=== PATIENT | male | born 1965 | race African-American/Black ===

== ENCOUNTER → 2018-03-05 | Outpatient (REF) | payer BC ==
[~2018-03-05] MED LIST: ACTOS30 MG PO; ACYCLOVIR400 MG PO; ALEVE220 MG OR; AMOXICILLIN500 MG; ATUSS DS OR; BACTRIM DS1 TAB PO; BACTROBAN21 EX; CEPH500C57 OR; CIPRO500 MG OR; CIPRO500 MG PO; COLCHICINE PO; DARVOCET-N 100100 MG OR; DOXYCYCL HYC100 MG PO; ENALAPR/HCTZ1 TA1 PO; FLAGYL500 MG PO; GLIPIZIDE ER10 M1 PO; GLIPIZIDE ER10 MG OR; INDOCIN25 MG PO; LIDOCAINE5 % EX; LOPRESSOR25 MG; LORTAB 10 PO; LORTAB 1010 MG PO; METFORMIN1000 MG OR; METFORMIN500 MG PO; MINERAL OIL RE; PROCTOSOL HC2.5 % RE; SIMVASTATIN10 MG PO; ULTRAM50 MG OR; ZANTAC150 MG OR; ZOFRAN ODT4 MG PO; ZPAK OR
== END | disposition home or self-care (01) | DRG 552 ==
LOC: DI 15:47
PROVIDERS: ATTEND Internal Medicine
DX: M54.5 Low back pain (principal)

== ENCOUNTER 2018-08-20 06:06 | Emergency (ER) | payer BC ==
[~2018-08-20] VITALS: Ht 185.4 cm; Wt 145.0 kg
[2018-08-20 07:04] VITALS: BP 145/84
== END 2018-08-20 07:06 | disposition home or self-care (01) | DRG 93 ==
LOC: ED 06:06
DX: G89.29 Other chronic pain (principal); M25.552 Pain in left hip; M25.551 Pain in right hip

== ENCOUNTER 2021-08-12 17:53 | Emergency (ER) | payer MEDICARE ==
[~2021-08-12] VITALS: Ht 185.4 cm; Wt 152.0 kg
[2021-08-12] VITALS (9 sets, daily range): BP systolic 118–154; BP diastolic 66–90
[2021-08-12] MEDS ORDERED: ORPHENADRINE100 MG PO (20:26)
[2021-08-12] MEDS ORDERED: TORADOL PO (20:26)
== END 2021-08-12 20:32 | disposition home or self-care (01) ==
LOC: ED 17:53
DX: M54.16 Radiculopathy, lumbar region (principal); E11.9 Type 2 diabetes mellitus without complications; I10 Essential (primary) hypertension; M06.9 Rheumatoid arthritis, unspecified; E78.00 Pure hypercholesterolemia, unspecified; Z96.643 Presence of artificial hip joint, bilateral; Z79.84 Long term (current) use of oral hypoglycemic drugs

== ENCOUNTER 2021-11-10 01:55 | Emergency (ER) | payer MEDICARE ==
[~2021-11-10] VITALS: Ht 185.4 cm; Wt 145.0 kg
[~2021-11-10 01:55] MED LIST changes: +ORPHENADRINE100 MG PO; +TORADOL PO
[2021-11-10 02:00] VITALS: BP 143/90
[2021-11-10 02:30] VITALS: BP 143/100
[2021-11-10] MEDS ORDERED: KEFLEX500 MG PO (03:17)
[2021-11-10] MEDS ORDERED: ROBITUSSIN AC10 ML PO (03:17)
[2021-11-10 03:20] VITALS: BP 149/98
== END 2021-11-10 03:26 | disposition home or self-care (01) ==
LOC: ED 01:55
DX: J06.9 Acute upper respiratory infection, unspecified (principal); I10 Essential (primary) hypertension; E11.9 Type 2 diabetes mellitus without complications; M06.9 Rheumatoid arthritis, unspecified; E78.00 Pure hypercholesterolemia, unspecified; Z79.84 Long term (current) use of oral hypoglycemic drugs; Z20.822 Contact with and (suspected) exposure to COVID-19

== ENCOUNTER 2021-11-21 14:58 | Inpatient (IN) | payer MEDICARE ==
[~2021-11-21] VITALS: Ht 185.4 cm; Wt 144.0 kg
[~2021-11-21 14:58] MED LIST changes: +KEFLEX500 MG PO; +ROBITUSSIN AC10 ML PO
[2021-11-21 15:18] VITALS: BP 132/85
--- NOTE | 2021-11-21 15:22 | NUR ---
PT AMBULATES TO ROOM 4 VIA WHEELCHAIR FOR EVAL OF SOB
[2021-11-21 16:09] LABS: HEMOGLOBIN 13.5 g/dl (14.0-18.0); IMMATURE GRANULOCYTES 0.2 % (0.0-5.0); MEAN CELL VOLUME 84.6 fL CALC (80.0-100.0); MEAN CORPUSCULAR HGB CONC 30.7 g/dL CAL (32.0-36.0); NEUT# 5.35 thou/uL (1.82-7.42); RED BLOOD COUNT 5.2 mill/uL (4.70-6.10); RED CELL DISTRI WIDTH 15.5 % (11.5-15.5)
[2021-11-21 16:41] LABS: ALBUMIN 4.6 g/dL (3.2-5.0); BILIRUBIN, TOTAL 0.5 mg/dL (0.0-1.4); CREATININE 1.9 mg/dL (0.7-1.3); POTASSIUM 4.2 mmol/l (3.5-5.1); TOTAL PROTEIN 8.8 g/dL (6.3-8.2)
[2021-11-21 17:50] VITALS: BP 112/79
--- NOTE | 2021-11-21 18:10 | NUR ---
3.5 LACTIC CRITICAL RESULT REPORTED TO
--- NOTE | 2021-11-21 19:12 | NUR ---
VOIDED 800 CC IN URINAL
--- NOTE | 2021-11-21 19:20 | NUR ---
PT GIVEN DIET SODA AND XL GOWN.
--- NOTE | 2021-11-21 21:38 | NUR ---
Report called to floor nurser
--- NOTE | 2021-11-21 21:39 | NUR ---
Report called to floor
--- NOTE | 2021-11-21 21:45 | NUR ---
PATIENT ARRIVED ON FLOOR VIA WHEELCHAIR ACCOMPANIED BY Helga ADAM RN.
[2021-11-21 21:48] VITALS: BP 139/95
[2021-11-22] VITALS (7 sets, daily range): BP systolic 111–151; BP diastolic 68–99
--- NOTE | 2021-11-22 00:15 | NUR ---
PATIENT RESTING COMFORTABLY, DENIES ANY CURRENT NEEDS. CALL LIGHT AND BEDSIDE TABLE WITHIN REACH.
[2021-11-22 06:27] LABS: HEMATOCRIT 40.4 % (39.0-50.0); HEMOGLOBIN 12.5 g/dl (14.0-18.0); MEAN CELL VOLUME 85.1 fL CALC (80.0-100.0); MEAN CORPUSCULAR HGB 26.3 pG CALC (26.0-32.0); MEAN CORPUSCULAR HGB CONC 30.9 g/dL CAL (32.0-36.0); RED BLOOD COUNT 4.75 mill/uL (4.70-6.10); RED CELL DISTRI WIDTH 15.5 % (11.5-15.5)
--- NOTE | 2021-11-22 06:31 | NUR ---
\HEPARIN ADMINSTERED AT THIS TIME. PATIENT DENIES ANY FURTHER NEEDS AT THIS TIME. CALL LIGHT WITHIN REACH.
[2021-11-22 07:19] LABS: CREATININE 1.7 mg/dL (0.7-1.3); MAGNESIUM 1.7 mg/dL (1.6-2.3); POTASSIUM 4.8 mmol/l (3.5-5.1)
--- NOTE | 2021-11-22 08:00 | NUR ---
PATIENT IS A/OX3, ABLE TO MAKE NEEDS KNOWN TO STAFF. DENIES PAIN AT THIS TIME. CLEAR SPEECH. DIMINSIHED LUNG SOUNDS. ACTIVE BOWEL SOUNDS. SOFT NON TENDER ABDOMEN. STRONG HAND DIRECTOR TREASURER, NO ARM OR LEG DRIFTS. STRONG PUSLES. SAFETY MEASURES IN PLACE. CALL LIGHT IN REACH. STABLE VITAL SIGNS. WILL COTNINUE TO MONITOR PER [facility]S POLICY.
--- NOTE | 2021-11-22 12:00 | NUR ---
DECREASED O2 TO 1L NC. STATED HE IS "DOING WELL" O2 SATS 94/95% WIH 1L NC
--- NOTE | 2021-11-22 16:00 | NUR ---
PATIENT REMAINS ON 1L NC, STATED HE WENT TO SHOWER ON ROOM AIR STATED HE DID WELL NO SOB OR DIZZINESS.
--- NOTE | 2021-11-22 22:52 | NUR ---
Patient is resting in bed, awake, no pain or needs reported at this time, encouraged to call if needed, voices understanding, call pagan at reach.
[2021-11-23] VITALS (11 sets, daily range): BP systolic 106–156; BP diastolic 54–108
--- NOTE | 2021-11-23 00:06 | NUR ---
Patient is resting in bed with eyes closed, no pain or needs reported at this time, encouraged to call if needed, voices understanding, call pagan at reach.
--- NOTE | 2021-11-23 04:24 | NUR ---
Patient is resting in bed with eyes closed, arouses easily to any stimuli, no pain or needs reported, will follow up closely, call pagan at reach, safety measures reinforced.
[2021-11-23 05:06] LABS: HEMATOCRIT 37.1 % (39.0-50.0); HEMOGLOBIN 11.5 g/dl (14.0-18.0); MEAN CELL VOLUME 84.3 fL CALC (80.0-100.0); MEAN CORPUSCULAR HGB 26.1 pG CALC (26.0-32.0); RED BLOOD COUNT 4.4 mill/uL (4.70-6.10); RED CELL DISTRI WIDTH 15.7 % (11.5-15.5)
[2021-11-23 05:26] LABS: ANION GAP 16 (6-22 (CALC)); BUN 21 mg/dL (9-20); BUN/CREATININE RATIO 16 (12-20 (CALC)); CARBON DIOXIDE 23 mmol/l (22-30); CHLORIDE 105 mmol/l (95-108); CREATININE 1.4 mg/dL (0.7-1.3); GFR FOR AFR.AMER. > 60 ML/MIN (>=60 (CALC)); GFR OTHER RACES 52 ML/MIN (>=60 (CALC)); POTASSIUM 4.6 mmol/l (3.5-5.1); SODIUM 139 mmol/l (137-146)
--- NOTE | 2021-11-23 06:11 | NUR ---
Patient denies any pain or needs, awake, watching tv, medicated with am medication per [facility] orders.
--- NOTE | 2021-11-23 20:00 | NUR ---
PT ALERT AND ORIENTED. SITTING UP AT SIDE OF THE BED. PT DENIES PAIN AND SHORTNESS OF BREATH. REMAINS ON 1L NC. VITAL SIGNS ARE WITHIN NORMAL LIMITS. PT HAS CALL LIGHT AND PERSONAL BELONGINGS WITHIN HIS REACH. WILL CONTINUE TO MONITOR.
[2021-11-24] VITALS (10 sets, daily range): BP systolic 120–162; BP diastolic 59–109
--- NOTE | 2021-11-24 | NUR ---
SHIFT REASSESSMENT - NO CHANGE IN PTS STATUS SINCE PREVIOUS ASSESSMENT. PT RESTING COMFORTABLE IN BED. HAS BEEN UP TO USE THE RESTROOM A FEW TIMES. VITAL SIGNS WITHIN NORMAL LIMITS. CALL LIGHT AND PERSONAL BELONGINGS WITHIN REACH. WILL CONTINUE TO MONITOR.
--- NOTE | 2021-11-24 04:00 | NUR ---
SHIFT REASSESSMENT - NO CHANGE IN PTS STATUS SINCE PREVIOUS ASSESSMENT. CALL LIGHT AND PERSONAL BELONGINGS WITHIN REACH. WILL CONTINUE TO MONITOR CLOSELY..
[2021-11-24 05:02] LABS: HEMATOCRIT 37.4 % (39.0-50.0); HEMOGLOBIN 11.5 g/dl (14.0-18.0); MEAN CELL VOLUME 84.6 fL CALC (80.0-100.0); MEAN CORPUSCULAR HGB CONC 30.7 g/dL CAL (32.0-36.0); RED BLOOD COUNT 4.42 mill/uL (4.70-6.10); RED CELL DISTRI WIDTH 15.7 % (11.5-15.5)
[2021-11-24 05:18] LABS: ANION GAP 14 (6-22 (CALC)); BUN 23 mg/dL (9-20); BUN/CREATININE RATIO 17 (12-20 (CALC)); CARBON DIOXIDE 24 mmol/l (22-30); CHLORIDE 105 mmol/l (95-108); CREATININE 1.4 mg/dL (0.7-1.3); GFR FOR AFR.AMER. > 60 ML/MIN (>=60 (CALC)); GFR OTHER RACES 52 ML/MIN (>=60 (CALC)); MAGNESIUM 2.1 mg/dL (1.6-2.3); POTASSIUM 4.5 mmol/l (3.5-5.1); SODIUM 138 mmol/l (137-146)
--- NOTE | 2021-11-24 08:00 | NUR ---
RESTING QUIETLY IN BED, NO SIGNS OR SYMPTOMS OF DISTRESS NOTED OR VOICED. COVERAGE GIVEN FOR BS OF 219, BREAKFAST EATEN.
--- NOTE | 2021-11-24 12:00 | NUR ---
RESTING QUIETLY IN BED, FAILED ANOTHER 6 MINUTE WALK TEST, CONTINUES ON 1 LITER OF OXYGEN, NO OTHER SIGNS OR SYMPTOMS OF DISTRESS NOTED OR VOICED.
--- NOTE | 2021-11-24 16:00 | NUR ---
RESTING QUIETLY IN BED, NO SIGNS OR SYMPTOMS OF DISTRESS NOTED OR VOICED. BP ELEVATED PER FEDERAL APPELLATE LAW CLERK, NURSE RECHECKED AND CURRENTLY 162/92. PHYSICIAN NOTIFIED OF ELEVATED BP AND CURRENTLY NOT ON HIS HOME MEDICATIONS.
[2021-11-25] VITALS (9 sets, daily range): BP systolic 114–146; BP diastolic 70–93
[2021-11-25 05:25] LABS: HEMOGLOBIN 11.3 g/dl (14.0-18.0); MEAN CELL VOLUME 84.5 fL CALC (80.0-100.0); MEAN CORPUSCULAR HGB 26.5 pG CALC (26.0-32.0); MEAN CORPUSCULAR HGB CONC 31.4 g/dL CAL (32.0-36.0); RED BLOOD COUNT 4.26 mill/uL (4.70-6.10); RED CELL DISTRI WIDTH 15.6 % (11.5-15.5)
[2021-11-25 05:28] LABS: ANION GAP 12 (6-22 (CALC)); BUN 21 mg/dL (9-20); BUN/CREATININE RATIO 18 (12-20 (CALC)); CARBON DIOXIDE 23 mmol/l (22-30); CHLORIDE 105 mmol/l (95-108); CREATININE 1.1 mg/dL (0.7-1.3); GFR FOR AFR.AMER. > 60 ML/MIN (>=60 (CALC)); GFR OTHER RACES > 60 ML/MIN (>=60 (CALC)); MAGNESIUM 2.1 mg/dL (1.6-2.3); POTASSIUM 4.4 mmol/l (3.5-5.1); SODIUM 137 mmol/l (137-146)
--- NOTE | 2021-11-25 07:00 | NUR ---
RECEIVE REPORT FROM ROSENDO FOFANA.
--- NOTE | 2021-11-25 08:12 | NUR ---
PATIENT ALERT AND ORIENTED X3. NOT RESPIRATORY DISTRESS AT THIS TIME. PATIENT RESTING PLEASANT. PATIENT IS EDUCATED ABOUD MEDICATIONS AND NURSING PLAN FOR TODAY. WALK TEST AND OXYGEN MANAGEMENT. PATIENT REFER UNDERSTAND. FALL AND SAFETY PRECAUTIONS IN PLACE. CALL LIGHT IS WITHIN REACH.
--- NOTE | 2021-11-25 10:49 | NUR ---
Pt seen this am for treatment, he was in boykin position, moved to sitting indep. Pt was on 3L 02 with Sats of 95%, on RA 93% Ambulated x 100' without 02 with sats decreasing to 84%. Pt ambulated 2 x 300' with 2l 02 with sats down to 89 and back to 95% within 3 min of rest. BP 142/88 to 152/92, HR 84 to 89. Pt left sitting on edge of bed on 2L 02 per nursing. Call pagan/tray in reach and pt without futher needs voiced. A- [facility] 20 pt mobility limited by resp status. P- will follow help increase resp status and mobility
--- NOTE | 2021-11-25 12:18 | NUR ---
PATIENT RESTING IN BED PLEASENT AT THIS TIME. STABLE
--- NOTE | 2021-11-25 16:26 | NUR ---
PATIENT STABLE A THIS TIME RESTING PLEASENT IN BED. FALL AND SAFETY PRECAUTIONS IN PLACE. CALL LIGHT IS WITHIN REACH.
--- NOTE | 2021-11-25 20:00 | NUR ---
RECEIVED REPORT FROM NURSE LAGUNAS, PATEINT RESTING IN BED WATCHING TV, HOOKED ON O2 @ 1LPM VIA NC, REMAINS ON TELEMETRY SR 86 ACCIDENTALY PULLED IV CATHETER INTACT, LUNG SOUNDS DIMINISHED, ACTIVE BOWEL SOUNDS, NOT IN DISTRESS CALL LIGHT IN REACH.
--- NOTE | 2021-11-25 20:40 | NUR ---
NEW IV REINSERTED G 22 ON RT HAND, PATENT FLUSHES WELL, DUE AZITHROMYCIN GIVEN.
[2021-11-26] VITALS (7 sets, daily range): BP systolic 109–130; BP diastolic 71–90
--- NOTE | 2021-11-26 | NUR ---
PATIENT ON CONTACT ISOLATION FOR HX OF MRSA, MRSA SURVEILLANCE SWAB OBTAIN PENDING RESULTS,
--- NOTE | 2021-11-26 04:09 | NUR ---
PATIENT RESTING IN BED,E EYES CLOSED, REMAINS ON CONTACT PRECAUTION FOR HX OF MRSA, REMAINS ON O2 2 2LPM VIA NC BREATHING UNLABORED CALL LIGHT AT REACH.
[2021-11-26 05:32] LABS: IMMATURE GRANULOCYTES 0.9 % (0.0-5.0); MEAN CELL VOLUME 84.3 fL CALC (80.0-100.0); MEAN CORPUSCULAR HGB 25.7 pG CALC (26.0-32.0); MEAN CORPUSCULAR HGB CONC 30.5 g/dL CAL (32.0-36.0); NEUT# 7.39 thou/uL (1.82-7.42); RED BLOOD COUNT 5.22 mill/uL (4.70-6.10); RED CELL DISTRI WIDTH 15.6 % (11.5-15.5)
--- NOTE | 2021-11-26 05:44 | NUR ---
spo2 ON 2LPM AT 99%, BREATHING UNLABORED, O2 TITRATED TO 1LPM AT THIS TIME.
[2021-11-26 05:49] LABS: HEMOGLOBIN 13.4 g/dl (14.0-18.0)
[2021-11-26 05:58] LABS: CREATININE 1.5 mg/dL (0.7-1.3); MAGNESIUM 2.3 mg/dL (1.6-2.3); POTASSIUM 4.6 mmol/l (3.5-5.1)
--- NOTE | 2021-11-26 06:17 | NUR ---
O2 @ 1LPM NC SPO2 AT 98% BREATHING UNLABORED.
--- NOTE | 2021-11-26 06:58 | NUR ---
PT REPORT FROM HOSPICE MUSIC THERAPIST
--- NOTE | 2021-11-26 08:00 | NUR ---
PT RESTING IN FOWLERS POSITION. A/OX3 PT ASSESSMENT AND VS COMPLETED.HEART RHYTHM NORMAL WITH TELE IN PLACE. RESPIRAITONS EVEN AND UNLABORED ON 1L OXYGEN. BOWEL SOUNDS ACTIVE. IV SITE NOTED S.L PT DENIES ADDITIONAL NEEDS AT THE TIME ALL SAFETY PRECAUTIONS IN PLACE.
--- NOTE | 2021-11-26 10:06 | NUR ---
Pt seen this am for treatment, he was in bed resting on R side. He reported sleeping well last pm. O- Pt moved supine to sit, sit to and from stand indep. Pt on 1L 02 with sats at 95%, 02 removed atnd 95% on RA. Gait x 250' without assist device or 02, sats 90 and above on 1st walk, on second walk decreased to 88 with recovery with rest and DB back to 92%, Pt on initial sitting down to 87-88% with recovery in less than 5 min to 94-95%. HR at rest 101 increase to 120's while ambulating. BP 140/92 to 152/95. Pt denied SOB during treatment. Per RT pt left on RA, METAL DRILLING MACHINE OPERATOR aware. Pt left sitting on edge of bed with call pagan and tray in reach. A- Pt moving well with improve 02 sats with activity. [facility] 20 home with OP cardiac rehab. P- Will continue to follow and monitior CV status.
--- NOTE | 2021-11-26 12:30 | NUR ---
PT RESTING IN HIGH FOWELERS PT DENIES ADDITIONAL NEEDS PT ON ROOM AIR . ALL SAFETY PRECAUTIONS IN PLACE.
--- NOTE | 2021-11-26 16:01 | NUR ---
PT RESTING IN HIGH FOWLERS POSITION. PT DENIES ADDITIONAL NEEDS AT THE TIME ALL SAFETY PRECAUTIONS IN PLACE.
--- NOTE | 2021-11-26 20:00 | NUR ---
SITTING UP AT BEDSIDE TALKING ON HIS CELL PHONE. RESPIRATIONS EVEN AND UNLABORED NO SOB NOTED LUNG SOUNDS DIMISHED BILATERALLY. ACCUCHEK 325 MG/DL
--- NOTE | 2021-11-27 | NUR ---
RESTING QUIETLY IN BED WITH EYES CLOSED. NO ACUTE DISTRESS NOTED RESPIRATIONS EVEN AND UNLABORED.
[2021-11-27 00:23] VITALS: BP 105/56
--- NOTE | 2021-11-27 03:29 | NUR ---
LYING IN BED RELAXED POSTURE NO ACUTE DISTRESS NOTED. RESPIRATIONS EVEN AND UNLABORED.
[2021-11-27 04:11] VITALS: BP 148/95
--- NOTE | 2021-11-27 04:15 | NUR ---
LABS OBTAINED VIA DUEL-LUMEN POWER-PICC LINE. PATIENT PAIN FREE AT THIS TIME USED THE URINAL WHILE IN BED. NO COMPLAINTS VOICED AT THIS TIME.
[2021-11-27 05:36] LABS: HEMATOCRIT 42.9 % (39.0-50.0); HEMOGLOBIN 13.5 g/dl (14.0-18.0); IMMATURE GRANULOCYTES 0.5 % (0.0-5.0); MEAN CELL VOLUME 83.3 fL CALC (80.0-100.0); MEAN CORPUSCULAR HGB 26.2 pG CALC (26.0-32.0); MEAN CORPUSCULAR HGB CONC 31.5 g/dL CAL (32.0-36.0); NEUT# 6.18 thou/uL (1.82-7.42); RED BLOOD COUNT 5.15 mill/uL (4.70-6.10); RED CELL DISTRI WIDTH 15.5 % (11.5-15.5)
[2021-11-27 06:06] LABS: ALBUMIN 3.8 g/dL (3.2-5.0); ALKALINE PHOSPHATASE 141 u/l (38-126); ANION GAP 13 (6-22 (CALC)); BILIRUBIN, TOTAL 0.5 mg/dL (0.0-1.4); BUN 25 mg/dL (9-20); BUN/CREATININE RATIO 20 (12-20 (CALC)); CARBON DIOXIDE 25 mmol/l (22-30); CHLORIDE 102 mmol/l (95-108); CREATININE 1.2 mg/dL (0.7-1.3); GFR FOR AFR.AMER. > 60 ML/MIN (>=60 (CALC)); GFR OTHER RACES > 60 ML/MIN (>=60 (CALC)); POTASSIUM 4.3 mmol/l (3.5-5.1); SGOT/AST 22 u/l (17-59); SODIUM 136 mmol/l (137-146)
[2021-11-27 06:48] VITALS: BP 128/72
[2021-11-27 08:00] VITALS: BP 128/72
--- NOTE | 2021-11-27 08:00 | NUR ---
AWAKE, ALERT, NO SIGNS OR SYMPTOMS OF DISTRESS NOTED OR VOICED.
[2021-11-27 08:39] VITALS: BP 128/72
--- NOTE | 2021-11-27 10:42 | NUR ---
Pt seen for treatment this am. He was OOb in chair, for d/c today. He was without complaints voiced. Gait was indep x 300' 2 times with 02 sats staying above 90%. Sit to stand and transfers were indep. P02 sats at rest on RA 95%, desat to 90/92% with gait, with recovery back to 95% at rest, HR 102 to 122. A- Pt indep in mobility with 02 sats staying above 90. [facility] 20 home. P- pt for d/c today.
--- NOTE | 2021-11-27 12:00 | NUR ---
RESTING QUIETLY IN BED, NO CHANGES IN CONDITION
[2021-11-27] MEDS ORDERED: LASIX 20 MG TAB20 MG PO (13:16)
--- NOTE | 2021-11-27 13:55 | NUR ---
PATIENT DISCHARGED HOME IN STABLE CONDISTION, NEW MEDICATIONS AND INSTRUCTIONS GONE OVER AND UNDERSTANDING VERBALIZED, IV REMOVED.
== END 2021-11-27 14:32 | disposition home or self-care (01) | DRG 291 ==
LOC: ED 14:58 → ED-I 19:58 → ED 20:10 → MS2 20:11
PROVIDERS: Family Medicine; Nurse Practitioner; ADMIT Hospitalist; ATTEND Hospitalist
DX: I11.0 Hypertensive heart disease with heart failure (principal); I50.31 Acute diastolic (congestive) heart failure; Z68.41 Body mass index [BMI] 40.0-44.9, adult; R09.02 Hypoxemia; E11.9 Type 2 diabetes mellitus without complications; M06.9 Rheumatoid arthritis, unspecified; E66.9 Obesity, unspecified; E78.00 Pure hypercholesterolemia, unspecified; Z79.84 Long term (current) use of oral hypoglycemic drugs; Z91.013 Allergy to seafood; Z20.822 Contact with and (suspected) exposure to COVID-19
CPT/HCPCS: Q9967

== ENCOUNTER 2021-12-23 12:28 | Observation (INO) | payer MEDICARE ==
[2021-12-23] VITALS (14 sets, daily range): BP systolic 82–131; BP diastolic 59–86
[~2021-12-23] VITALS: Ht 185.4 cm; Wt 158.9 kg
[~2021-12-23 12:28] MED LIST changes: +LASIX 20 MG TAB20 MG PO; -LOPRESSOR25 MG; +LOPRESSOR25 MG PO; +METFORMIN500 M2 PO; -METFORMIN500 MG PO
[2021-12-23 14:15] LABS: ALBUMIN 4.3 g/dL (3.2-5.0); CREATININE 1.7 mg/dL (0.7-1.3); TOTAL PROTEIN 8.4 g/dL (6.3-8.2)
[2021-12-23 14:37] LABS: HEMATOCRIT 42.9 % (39.0-50.0); HEMOGLOBIN 13.4 g/dl (14.0-18.0); IMMATURE GRANULOCYTES 0.1 % (0.0-5.0); MEAN CORPUSCULAR HGB 25.9 pG CALC (26.0-32.0); MEAN CORPUSCULAR HGB CONC 31.2 g/dL CAL (32.0-36.0); NEUT# 4.79 thou/uL (1.82-7.42); RED BLOOD COUNT 5.17 mill/uL (4.70-6.10); RED CELL DISTRI WIDTH 15.3 % (11.5-15.5)
[2021-12-23 14:45] LABS: POTASSIUM 4.3 mmol/l (3.5-5.1)
[2021-12-23 14:47] LABS: BILIRUBIN, TOTAL 0.6 mg/dL (0.0-1.4)
[2021-12-23] MEDS ORDERED: LISINOPRIL2.5 MG PO (15:11)
[2021-12-23] MEDS ORDERED: CRESTOR5 MG PO (15:14)
[2021-12-23] MEDS ORDERED: ALLOPURINOL100 MG PO (15:14)
[2021-12-23] MEDS ORDERED: NOVOLOG MIX SC ×2 (15:15)
[2021-12-24 00:24] VITALS: BP 109/64
[2021-12-24 04:07] LABS: CREATININE 1.7 mg/dL (0.7-1.3)
[2021-12-24 04:09] LABS: POTASSIUM 3.7 mmol/l (3.5-5.1)
[2021-12-24 04:10] VITALS: BP 99/54
[2021-12-24 06:31] VITALS: BP 106/68
[2021-12-24 14:40] VITALS: BP 112/75
[2021-12-24 14:58] LABS: URINE BILIRUBIN - DIPSTICK NEGATIVE (NEGATIVE); URINE BLOOD DIPSTICK TRACE-INTACT (NEGATIVE); URINE COLOR YELLOW; URINE GLUCOSE - DIPSTICK 100 mg/dL (NEGATIVE); URINE KETONE NEGATIVE (NEGATIVE); URINE LEUK ESTERASE NEGATIVE (Negative); URINE NITRITE - DIPSTICK NEGATIVE (Negative); URINE PH 6.5 (4.5-8.0); URINE PROTEIN - DIPSTICK 30 mg/dL (NEG-TRACE); URINE SPECIFIC GRAVITY 1.015
[2021-12-24 15:00] LABS: URINE CLARITY SL CLOUDY
[2021-12-24 15:01] LABS: URINE EPITHELIAL CELLS MODERATE EPI/hpf (0-FEW); URINE MUCUS FEW hpf (NONE-FEW); URINE RBC 0-2 RBC/hpf (0-5)
[2021-12-24] MEDS ORDERED: ENALAPRIL10 MG PO (15:44)
[2021-12-24] MEDS ORDERED: PIOGLITAZONE HC30 MG PO (15:45)
[2021-12-24 18:57] VITALS: BP 113/72
[2021-12-25 03:44] VITALS: BP 122/71
[2021-12-25 05:26] LABS: HEMATOCRIT 39.1 % (39.0-50.0); HEMOGLOBIN 12.1 g/dl (14.0-18.0); IMMATURE GRANULOCYTES 0.2 % (0.0-5.0); MEAN CELL VOLUME 84.6 fL CALC (80.0-100.0); MEAN CORPUSCULAR HGB 26.2 pG CALC (26.0-32.0); MEAN CORPUSCULAR HGB CONC 30.9 g/dL CAL (32.0-36.0); NEUT# 3.1 thou/uL (1.82-7.42); RED BLOOD COUNT 4.62 mill/uL (4.70-6.10); RED CELL DISTRI WIDTH 15.4 % (11.5-15.5)
[2021-12-25 05:39] LABS: CREATININE 1.5 mg/dL (0.7-1.3); MAGNESIUM 1.8 mg/dL (1.6-2.3); POTASSIUM 4.1 mmol/l (3.5-5.1)
[2021-12-25 06:49] VITALS: BP 109/69
[2021-12-25 09:27] VITALS: BP 105/67
[2021-12-25 10:28] VITALS: BP 128/68
[2021-12-25 15:11] VITALS: BP 123/79
== END 2021-12-25 15:45 | disposition home or self-care (01) ==
LOC: ED 12:28 → ED-I 15:10 → ED 15:17 → MS2 15:18
PROVIDERS: Family Medicine; Nurse Practitioner; ADMIT Internal Medicine; ATTEND Internal Medicine
DX: R55 Syncope and collapse (principal); N17.9 Acute kidney failure, unspecified; E86.0 Dehydration; I11.0 Hypertensive heart disease with heart failure; I50.9 Heart failure, unspecified; I95.9 Hypotension, unspecified; R09.02 Hypoxemia; E11.9 Type 2 diabetes mellitus without complications; M06.9 Rheumatoid arthritis, unspecified; E78.00 Pure hypercholesterolemia, unspecified; Z79.84 Long term (current) use of oral hypoglycemic drugs; Z79.4 Long term (current) use of insulin; Z20.822 Contact with and (suspected) exposure to COVID-19
CPT/HCPCS: J1650

== ENCOUNTER 2022-02-28 12:39 | Emergency (ER) | payer MEDICARE ==
[2022-02-28] VITALS (11 sets, daily range): BP systolic 113–142; BP diastolic 74–90
[~2022-02-28] VITALS: Ht 185.4 cm; Wt 140.9 kg
[~2022-02-28 12:39] MED LIST changes: +ALLOPURINOL100 MG PO; +CRESTOR5 MG PO; +ENALAPRIL10 MG PO; +LISINOPRIL2.5 MG PO; +NOVOLOG MIX SC; +PIOGLITAZONE HC30 MG PO
[2022-02-28 13:47] LABS: ALBUMIN 4.2 g/dL (3.2-5.0); ALKALINE PHOSPHATASE 118 u/l (38-126); ANION GAP 17 (6-22 (CALC)); BUN 15 mg/dL (9-20); BUN/CREATININE RATIO 11 (12-20 (CALC)); CARBON DIOXIDE 21 mmol/l (22-30); CHLORIDE 104 mmol/l (95-108); CREATININE 1.3 mg/dL (0.7-1.3); GFR FOR AFR.AMER. > 60 ML/MIN (>=60 (CALC)); GFR OTHER RACES 57 ML/MIN (>=60 (CALC)); POTASSIUM 3.8 mmol/l (3.5-5.1); SGOT/AST 32 u/l (17-59); SODIUM 138 mmol/l (137-146); TOTAL PROTEIN 8.1 g/dL (6.3-8.2)
[2022-02-28 13:48] LABS: HEMATOCRIT 40.2 % (39.0-50.0); HEMOGLOBIN 12.7 g/dl (14.0-18.0); IMMATURE GRANULOCYTES 0.1 % (0.0-5.0); MEAN CORPUSCULAR HGB 24.9 pG CALC (26.0-32.0); MEAN CORPUSCULAR HGB CONC 31.6 g/dL CAL (32.0-36.0); NEUT# 4.64 thou/uL (1.82-7.42); RED BLOOD COUNT 5.1 mill/uL (4.70-6.10); RED CELL DISTRI WIDTH 16.6 % (11.5-15.5)
[2022-02-28 13:49] LABS: MEAN CELL VOLUME 78.8 fL CALC (80.0-100.0)
[2022-02-28] MEDS ORDERED: [UNRECOGNIZED DRUG - OTHER] PO (14:54)
[2022-02-28] MEDS ORDERED: DULOXETINE HCL60 MG PO (14:55)
[2022-02-28] MEDS ORDERED: CRESTOR40 MG PO (14:55)
[2022-02-28] MEDS ORDERED: ENTRESTO 24-261 TAB PO (14:56)
[2022-02-28] MEDS ORDERED: PROTONIX40 M2 PO (14:57)
[2022-02-28] MEDS ORDERED: B-121000 MC1 PO (15:01)
[2022-02-28] MEDS ORDERED: FUROSEMIDE20 MG PO (15:03)
[2022-02-28] MEDS ORDERED: ALLOPURINOL100 MG PO (15:03)
== END 2022-02-28 15:30 | disposition home or self-care (01) ==
LOC: ED 12:39
PROVIDERS: Family Medicine
DX: R06.02 Shortness of breath (principal); I11.0 Hypertensive heart disease with heart failure; I50.9 Heart failure, unspecified; I42.9 Cardiomyopathy, unspecified; I27.20 Pulmonary hypertension, unspecified; E11.9 Type 2 diabetes mellitus without complications; I25.10 Atherosclerotic heart disease of native coronary artery without angina pectoris; E66.01 Morbid (severe) obesity due to excess calories; Z79.84 Long term (current) use of oral hypoglycemic drugs; Z79.4 Long term (current) use of insulin; Z99.81 Dependence on supplemental oxygen; Z59.1 Inadequate housing

== ENCOUNTER 2022-06-03 22:43 | Emergency (ER) | payer MEDICARE ==
[~2022-06-03] VITALS: Ht 185.4 cm; Wt 127.0 kg
[~2022-06-03 22:43] MED LIST changes: +B-121000 MC1 PO; +CRESTOR40 MG PO; +DULOXETINE HCL60 MG PO; +ENTRESTO 24-261 TAB PO; +FUROSEMIDE20 MG PO; +PROTONIX40 M2 PO; +[UNRECOGNIZED DRUG - OTHER] PO
[2022-06-03 23:15] VITALS: BP 111/68
[2022-06-03 23:21] LABS: BASO% 0.6 % (0-3); EOS% 1.9 % (0-8); HEMATOCRIT 34.7 % (39.0-50.0); IMMATURE GRANULOCYTES 0.1 % (0.0-5.0); MEAN CELL VOLUME 75.9 fL CALC (80.0-100.0); MEAN CORPUSCULAR HGB 24.1 pG CALC (26.0-32.0); MEAN CORPUSCULAR HGB CONC 31.7 g/dL CAL (32.0-36.0); MONO% 6.3 % (2-13); NEUT# 4.46 thou/uL (1.82-7.42); NEUT% 65.1 % (42-76); RED BLOOD COUNT 4.57 mill/uL (4.70-6.10); RED CELL DISTRI WIDTH 18.5 % (11.5-15.5)
[2022-06-03 23:30] LABS: ALBUMIN 3.9 g/dL (3.2-5.0); ALKALINE PHOSPHATASE 133 u/l (38-126); ANION GAP 14 (6-22 (CALC)); BILIRUBIN, TOTAL 0.8 mg/dL (0.0-1.4); BUN 24 mg/dL (9-20); BUN/CREATININE RATIO 20 (12-20 (CALC)); CARBON DIOXIDE 25 mmol/l (22-30); CHLORIDE 105 mmol/l (95-108); CREATININE 1.2 mg/dL (0.7-1.3); GFR FOR AFR.AMER. > 60 ML/MIN (>=60 (CALC)); GFR OTHER RACES > 60 ML/MIN (>=60 (CALC)); POTASSIUM 3.9 mmol/l (3.5-5.1); SGOT/AST 34 u/l (17-59); SODIUM 140 mmol/l (137-146); TOTAL PROTEIN 7.4 g/dL (6.3-8.2)
[2022-06-03 23:45] VITALS: BP 104/74
[2022-06-04] VITALS (7 sets, daily range): BP systolic 98–121; BP diastolic 49–89
== END 2022-06-04 01:45 | disposition home or self-care (01) ==
LOC: ED 22:43
PROVIDERS: Family Medicine
DX: J96.10 Chronic respiratory failure, unspecified whether with hypoxia or hypercapnia (principal); I10 Essential (primary) hypertension; E11.9 Type 2 diabetes mellitus without complications; Z99.81 Dependence on supplemental oxygen; Z79.4 Long term (current) use of insulin; Z20.822 Contact with and (suspected) exposure to COVID-19

== ENCOUNTER 2022-06-21 20:16 | Inpatient (IN) | payer MEDICARE ==
[~2022-06-21] VITALS: Ht 185.4 cm; Wt 132.2 kg
[2022-06-21] VITALS (14 sets, daily range): BP systolic 52–116; BP diastolic 28–78
[2022-06-21 21:15] LABS: BASO% 0.4 % (0-3); EOS% 1.8 % (0-8); HEMATOCRIT 38.5 % (39.0-50.0); HEMOGLOBIN 11.6 g/dl (14.0-18.0); IMMATURE GRANULOCYTES 0.2 % (0.0-5.0); LYMPH% 25.4 % (15-41); MEAN CELL VOLUME 78.1 fL CALC (80.0-100.0); MEAN CORPUSCULAR HGB 23.5 pG CALC (26.0-32.0); MEAN CORPUSCULAR HGB CONC 30.1 g/dL CAL (32.0-36.0); MONO% 4.9 % (2-13); NEUT# 3.28 thou/uL (1.82-7.42); NEUT% 67.3 % (42-76); RED BLOOD COUNT 4.93 mill/uL (4.70-6.10)
[2022-06-21 21:27] LABS: ALBUMIN 4.3 g/dL (3.2-5.0); ALKALINE PHOSPHATASE 151 u/l (38-126); ANION GAP 16 (6-22 (CALC)); BILIRUBIN, TOTAL 0.7 mg/dL (0.0-1.4); BUN 40 mg/dL (9-20); CARBON DIOXIDE 21 mmol/l (22-30); CHLORIDE 105 mmol/l (95-108); POTASSIUM 3.5 mmol/l (3.5-5.1); SGOT/AST 51 u/l (17-59); SODIUM 139 mmol/l (137-146)
[2022-06-21 21:30] LABS: BUN/CREATININE RATIO 17 (12-20 (CALC)); CREATININE 2.3 mg/dL (0.7-1.3); GFR FOR AFR.AMER. 36 ML/MIN (>=60 (CALC)); GFR OTHER RACES 29 ML/MIN (>=60 (CALC))
[2022-06-21 23:54] LABS: URINE BILIRUBIN - DIPSTICK NEGATIVE (NEGATIVE); URINE BLOOD DIPSTICK TRACE-INTACT (NEGATIVE); URINE COLOR YELLOW; URINE GLUCOSE - DIPSTICK NEGATIVE (NEGATIVE); URINE KETONE NEGATIVE (NEGATIVE); URINE LEUK ESTERASE NEGATIVE (NEGATIVE); URINE PH 5.5 (4.5-8.0); URINE PROTEIN - DIPSTICK 30 mg/dL (NEG-TRACE); URINE SPECIFIC GRAVITY 1.025; URINE UROBILINOGEN - DIPSTICK 0.2 E.U./dL (0.2)
[2022-06-21 23:56] LABS: URINE NITRITE - DIPSTICK NEGATIVE (Negative)
[2022-06-22] VITALS (13 sets, daily range): BP systolic 70–125; BP diastolic 36–88
[2022-06-22 00:02] LABS: URINE BACTERIA FEW hpf; URINE EPITHELIAL CELLS FEW EPI/hpf (0-FEW); URINE HYALINE CAST FEW lpf (NONE-RARE)
[2022-06-22 00:03] LABS: URINE MUCUS FEW hpf (NONE-FEW)
[2022-06-22] MEDS ORDERED: ATORVASTATIN CA10 MG PO (00:16)
[2022-06-22] MEDS ORDERED: [UNRECOGNIZED DRUG - REMARK] (00:36)
[2022-06-22] MEDS ORDERED: OXYGEN (00:36)
[2022-06-22] MEDS ORDERED: ATORVASTATIN CA80 MG PO (12:48)
[2022-06-22] MEDS ORDERED: CLOPIDOGREL75 MG PO (12:51)
[2022-06-22] MEDS ORDERED: ASPIRIN81 MG PO (12:53)
[2022-06-22] MEDS ORDERED: TRAZODONE50 MG PO (13:02)
[2022-06-22] MEDS ORDERED: CRESTOR40 MG PO (21:04)
[2022-06-23 00:02] VITALS: BP 99/66
[2022-06-23 00:34] LABS: HEMATOCRIT 35.9 % (39.0-50.0); HEMOGLOBIN 10.7 g/dl (14.0-18.0); MEAN CELL VOLUME 77.9 fL CALC (80.0-100.0); MEAN CORPUSCULAR HGB 23.2 pG CALC (26.0-32.0); MEAN CORPUSCULAR HGB CONC 29.8 g/dL CAL (32.0-36.0); RED BLOOD COUNT 4.61 mill/uL (4.70-6.10)
[2022-06-23 00:57] LABS: ALBUMIN 3.8 g/dL (3.2-5.0); BILIRUBIN, TOTAL 0.9 mg/dL (0.0-1.4); CREATININE 1.8 mg/dL (0.7-1.3); MAGNESIUM 1.5 mg/dL (1.6-2.3); POTASSIUM 3.6 mmol/l (3.5-5.1); TOTAL PROTEIN 6.9 g/dL (6.3-8.2)
[2022-06-23 03:26] VITALS: BP 89/60
[2022-06-23 06:37] VITALS: BP 115/73
[2022-06-23 11:27] VITALS: BP 115/73
[2022-06-23 14:16] VITALS: BP 122/73
[2022-06-23 18:57] VITALS: BP 93/50
[2022-06-24 00:09] VITALS: BP 92/54
[2022-06-24 04:08] VITALS: BP 96/58
[2022-06-24 06:30] VITALS: BP 103/68
[2022-06-24 06:32] LABS: ALBUMIN 3.6 g/dL (3.2-5.0); BILIRUBIN, TOTAL 0.9 mg/dL (0.0-1.4); CREATININE 1.7 mg/dL (0.7-1.3); POTASSIUM 3.2 mmol/l (3.5-5.1); TOTAL PROTEIN 6.8 g/dL (6.3-8.2)
[2022-06-24 06:40] LABS: BASO% 0.7 % (0-3); EOS% 4.5 % (0-8); HEMATOCRIT 32.3 % (39.0-50.0); HEMOGLOBIN 9.9 g/dl (14.0-18.0); LYMPH% 28.7 % (15-41); MEAN CELL VOLUME 77.5 fL CALC (80.0-100.0); MEAN CORPUSCULAR HGB 23.7 pG CALC (26.0-32.0); MEAN CORPUSCULAR HGB CONC 30.7 g/dL CAL (32.0-36.0); MONO% 8.7 % (2-13); NEUT# 2.58 thou/uL (1.82-7.42); NEUT% 57.4 % (42-76); RED BLOOD COUNT 4.17 mill/uL (4.70-6.10); RED CELL DISTRI WIDTH 19.7 % (11.5-15.5)
[2022-06-24 10:52] VITALS: BP 96/64
[2022-06-24 14:15] VITALS: BP 117/71
[2022-06-24 19:17] VITALS: BP 108/69
[2022-06-25 00:17] VITALS: BP 110/63
[2022-06-25 04:25] VITALS: BP 118/73
[2022-06-25 05:33] LABS: BASO% 0.7 % (0-3); EOS% 3.9 % (0-8); HEMATOCRIT 31.6 % (39.0-50.0); HEMOGLOBIN 9.7 g/dl (14.0-18.0); LYMPH% 25.4 % (15-41); MEAN CELL VOLUME 77.3 fL CALC (80.0-100.0); MEAN CORPUSCULAR HGB 23.7 pG CALC (26.0-32.0); MEAN CORPUSCULAR HGB CONC 30.7 g/dL CAL (32.0-36.0); MONO% 8.5 % (2-13); NEUT# 2.81 thou/uL (1.82-7.42); NEUT% 61.5 % (42-76); RED BLOOD COUNT 4.09 mill/uL (4.70-6.10); RED CELL DISTRI WIDTH 19.6 % (11.5-15.5)
[2022-06-25 05:47] LABS: ALBUMIN 3.4 g/dL (3.2-5.0); ALKALINE PHOSPHATASE 140 u/l (38-126); ANION GAP 8 (6-22 (CALC)); BILIRUBIN, TOTAL 0.9 mg/dL (0.0-1.4); BUN 22 mg/dL (9-20); BUN/CREATININE RATIO 17 (12-20 (CALC)); CARBON DIOXIDE 28 mmol/l (22-30); CHLORIDE 104 mmol/l (95-108); CREATININE 1.3 mg/dL (0.7-1.3); GFR FOR AFR.AMER. > 60 ML/MIN (>=60 (CALC)); GFR OTHER RACES 57 ML/MIN (>=60 (CALC)); MAGNESIUM 1.7 mg/dL (1.6-2.3); POTASSIUM 3.3 mmol/l (3.5-5.1); SGOT/AST 62 u/l (17-59); SODIUM 137 mmol/l (137-146); TOTAL PROTEIN 6.7 g/dL (6.3-8.2)
[2022-06-25 06:13] VITALS: BP 93/65
[2022-06-25 06:43] VITALS: BP 100/63
[2022-06-25 06:52] VITALS: BP 93/65
[2022-06-25] MEDS ORDERED: MIDODRINE5 MG PO (10:19)
== END 2022-06-25 13:17 | disposition home or self-care (01) | DRG 291 ==
LOC: ED 20:16 → ED-I 23:05 → ED 06-22 02:58 → MS2 06-22 02:58
PROVIDERS: Emergency Medicine; Nurse Practitioner Family; ADMIT Internal Medicine; ATTEND Internal Medicine
DX: I11.0 Hypertensive heart disease with heart failure (principal); J96.21 Acute and chronic respiratory failure with hypoxia; N17.9 Acute kidney failure, unspecified; I50.9 Heart failure, unspecified; J10.1 Influenza due to other identified influenza virus with other respiratory manifestations; I95.9 Hypotension, unspecified; E11.9 Type 2 diabetes mellitus without complications; J44.9 Chronic obstructive pulmonary disease, unspecified; Z79.84 Long term (current) use of oral hypoglycemic drugs; Z99.81 Dependence on supplemental oxygen; Z20.822 Contact with and (suspected) exposure to COVID-19
CPT/HCPCS: J2060; J3475

== ENCOUNTER 2024-08-16 13:20 | Inpatient (IN) | payer MEDICARE ==
[~2024-08-16] VITALS: Ht 185.4 cm; Wt 129.0 kg
[2024-08-16] VITALS (30 sets, daily range): BP systolic 113–150; BP diastolic 62–112
[~2024-08-16 13:20] MED LIST changes: +ADEMPAS2.5 MG PO; +ASPIRIN81 MG PO; +ASPIRINCHW 81MG PO; +ATORVASTATIN CA10 MG PO; +ATORVASTATIN CA80 MG PO; +CLOPIDOGREL75 MG PO; +DIFLUCAN100 MG PO; +IRON325 M1 PO; +LANTUS100 UNIT SC; +LIPITOR80 M1 PO; +MIDODRINE5 MG PO; +NOVOLOG100 UNIT SC; +ORENITRAM PO; +OXYGEN; +RAMELTEON8 MG PO; +TRAZODONE50 MG PO; +[UNRECOGNIZED DRUG - REMARK]
[2024-08-16] MEDS ORDERED: BUMETANIDE 1 MG/4 ML VIAL IV ONE (14:20)
[2024-08-16 14:26] LABS: BASO% 0.4 % (0-3); EOS% 0.7 % (0-8); HEMOGLOBIN 14.3 g/dl (14.0-18.0); IMMATURE GRANULOCYTES 0.2 % (0.0-5.0); LYMPH% 16.5 % (15-41); MEAN CELL VOLUME 81.2 fL CALC (80.0-100.0); MEAN CORPUSCULAR HGB 25.1 pG CALC (26.0-32.0); MEAN CORPUSCULAR HGB CONC 30.9 g/dL CAL (32.0-36.0); MONO% 4.5 % (2-13); NEUT# 4.27 thou/uL (1.82-7.42); NEUT% 77.7 % (42-76); RED BLOOD COUNT 5.7 mill/uL (4.70-6.10); RED CELL DISTRI WIDTH 15.6 % (11.5-15.5)
[2024-08-16 14:27] LABS: HEMATOCRIT 46.3 % (39.0-50.0)
[2024-08-16 14:39] LABS: ALBUMIN 4.5 g/dL (3.2-5.0); CREATININE 1.1 mg/dL (0.7-1.3); POTASSIUM 3.3 mmol/l (3.5-5.1); TOTAL PROTEIN 7.9 g/dL (6.3-8.2)
[2024-08-16 14:43] LABS: INTERNATIONAL NORMALIZED RATIO 1.2 RATIO (0.7-1.3)
[2024-08-16 14:44] LABS: PROTHROMBIN TIME 12.5 SECONDS (9.0-12.5)
[2024-08-16 14:52] LABS: URINE BILIRUBIN - DIPSTICK Negative (NEGATIVE); URINE BLOOD DIPSTICK Negative (NEGATIVE); URINE GLUCOSE - DIPSTICK 250 mg/dL (NEGATIVE); URINE KETONE Negative (NEGATIVE); URINE LEUK ESTERASE Negative (NEGATIVE); URINE NITRITE - DIPSTICK Negative (Negative); URINE PH 6.5 (4.5-8.0); URINE PROTEIN - DIPSTICK >=300 mg/dL (NEG-TRACE); URINE SPECIFIC GRAVITY 1.015
[2024-08-16 14:54] LABS: URINE COLOR Yellow
[2024-08-16 14:58] LABS: BILIRUBIN, TOTAL 1.7 mg/dL (0.2-1.3)
[2024-08-16 15:09] LABS: URINE RBC 0-2 RBC/hpf (0-5); URINE SQUAMOUS EPITHELIAL CELL RARE EPI/hpf (0-FEW); URINE WBC 0-2 WBC/hpf (0-5)
[2024-08-16] MEDS ORDERED: POTASSIUM CHLORIDE 20 MEQ/TAB PO ONE (15:55)
[2024-08-16] MEDS ORDERED: MAGNESIUM HYDROXIDE 30 ML UDC PO PRN (17:10)
[2024-08-16] MEDS ORDERED: Zaleplon 5 MG/CAP PO PRN (17:10)
[2024-08-16] MEDS ORDERED: ACETAMINOPHEN 325 MG/TAB PO PRN (17:10)
[2024-08-16] MEDS ORDERED: LANTUS100 UNIT IM (17:51)
[2024-08-16] MEDS ORDERED: LANTUS100 UNIT SC (17:56)
[2024-08-16] MEDS ORDERED: KLOR-CON M2020 MEQ PO ×2 (17:58→17:59)
[2024-08-16] MEDS ORDERED: [UNRECOGNIZED DRUG - REMARK] (18:02)
[2024-08-16] MEDS ORDERED: BUMETANIDE 1 MG/4 ML VIAL IV SCH (21:00)
[2024-08-16] MEDS ORDERED: ENOXAPARIN SODIUM 40 MG/0.4 ML SYR SC SCH (21:00)
[2024-08-17] VITALS (48 sets, daily range): BP systolic 87–151; BP diastolic 51–100
[2024-08-17 03:10] LABS: BASO% 0.2 % (0-3); EOS% 1.2 % (0-8); HEMATOCRIT 41.5 % (39.0-50.0); HEMOGLOBIN 12.7 g/dl (14.0-18.0); IMMATURE GRANULOCYTES 0.2 % (0.0-5.0); LYMPH% 25.9 % (15-41); MEAN CELL VOLUME 81.9 fL CALC (80.0-100.0); MEAN CORPUSCULAR HGB CONC 30.6 g/dL CAL (32.0-36.0); MONO% 10.1 % (2-13); NEUT# 3.77 thou/uL (1.82-7.42); NEUT% 62.4 % (42-76); RED BLOOD COUNT 5.07 mill/uL (4.70-6.10); RED CELL DISTRI WIDTH 15.6 % (11.5-15.5)
[2024-08-17 03:24] LABS: ALBUMIN 3.8 g/dL (3.2-5.0); BILIRUBIN, TOTAL 1.4 mg/dL (0.2-1.3); MAGNESIUM 1.4 mg/dL (1.6-2.3); TOTAL PROTEIN 6.8 g/dL (6.3-8.2)
[2024-08-17] MEDS ORDERED: POTASSIUM CHLORIDE 20MEQ 100 ML IV SCH (03:50)
[2024-08-17] MEDS ORDERED: MAGNESIUM SULFATE HEPTAHYDRATE 50 ML IV SCH (03:50)
[2024-08-17 09:19] LABS: CHOLESTEROL HDL RATIO 2.6 (<4.4 (CALC))
[2024-08-17 09:28] LABS: MAGNESIUM 2.2 mg/dL (1.6-2.3)
[2024-08-17] MEDS ORDERED: DEXTROSE 250 ML IV PRN (11:05)
[2024-08-17] MEDS ORDERED: METOPROLOL TARTRATE 25 MG/TAB PO SCH (11:30)
[2024-08-17] MEDS ORDERED: CLOPIDOGREL BISULFATE 75 MG/TAB TAB PO SCH (11:30)
[2024-08-17] MEDS ORDERED: INSULIN GLARGINE 100 UNITS/ML SC SCH (11:30)
[2024-08-17] MEDS ORDERED: ALLOPURINOL 100 MG/TAB PO SCH (12:00)
[2024-08-17] MEDS ORDERED: ADEMPAS 2.5 MG PO SCH (12:45)
[2024-08-17] MEDS ORDERED: ATORVASTATIN CALCIUM 40 MG/TAB PO SCH (17:00)
[2024-08-17] MEDS ORDERED: POTASSIUM CHLORIDE 20 MEQ/TAB PO SCH (21:00)
[2024-08-18 01:12] VITALS: BP 138/83
[2024-08-18 06:28] LABS: ALBUMIN 3.3 g/dL (3.2-5.0); BILIRUBIN, TOTAL 1.4 mg/dL (0.2-1.3); CREATININE 1.1 mg/dL (0.7-1.3); HEMATOCRIT 38.9 % (39.0-50.0); HEMOGLOBIN 12.5 g/dl (14.0-18.0); MAGNESIUM 1.7 mg/dL (1.6-2.3); MEAN CORPUSCULAR HGB CONC 32.1 g/dL CAL (32.0-36.0); POTASSIUM 3.4 mmol/l (3.5-5.1); RED BLOOD COUNT 4.8 mill/uL (4.70-6.10); RED CELL DISTRI WIDTH 15.4 % (11.5-15.5); TOTAL PROTEIN 6.1 g/dL (6.3-8.2)
[2024-08-18 07:14] VITALS: BP 112/75
[2024-08-18] MEDS ORDERED: ASPIRIN 81 MG/TAB PO SCH (09:00)
[2024-08-18 11:05] VITALS: BP 108/83
[2024-08-18 14:42] VITALS: BP 98/52
[2024-08-18 17:53] VITALS: BP 124/64
[2024-08-18 23:25] VITALS: BP 98/62
[2024-08-19 04:26] VITALS: BP 116/59
[2024-08-19 06:21] VITALS: BP 116/59
[2024-08-19] MEDS ORDERED: DEXTROSE 50% 50 ML/SYR IV PRN (06:30)
[2024-08-19] MEDS ORDERED: DEXTROSE 250 ML IV PRN (06:30)
[2024-08-19 06:46] LABS: POTASSIUM 3.7 mmol/l (3.5-5.1); TOTAL PROTEIN 6.2 g/dL (6.3-8.2)
[2024-08-19 06:49] LABS: ALBUMIN 3.5 g/dL (3.2-5.0)
[2024-08-19 07:00] VITALS: BP 94/59
[2024-08-19] MEDS ORDERED: INSULIN LISPRO 100 UNITS/ML ML SC SCH (07:00)
[2024-08-19 10:28] VITALS: BP 117/69
[2024-08-19] MEDS ORDERED: DULOXETINE HYDR30 MG PO (12:13)
[2024-08-19] MEDS ORDERED: METOLAZONE5 MG PO (12:14)
== END 2024-08-19 13:36 | disposition home or self-care (01) | DRG 291 ==
LOC: ED 13:20 → ED-I 16:54 → ED 17:17 → ED-I 17:18 → MS2 08-17 17:46
PROVIDERS: Nurse Practitioner; Nurse Practitioner Family; ADMIT Internal Medicine; ATTEND Internal Medicine
PROC: 5A0935A Assistance with Respiratory Ventilation, Less than 24 Consecutive Hours, High Flow/Velocity Cannula (ICD-10-PCS; principal; 2024-08-16)
DX: I13.0 Hypertensive heart and chronic kidney disease with heart failure and stage 1 through stage 4 chronic kidney disease, or unspecified chronic kidney disease (principal); J96.21 Acute and chronic respiratory failure with hypoxia; I50.9 Heart failure, unspecified; E11.22 Type 2 diabetes mellitus with diabetic chronic kidney disease; N18.9 Chronic kidney disease, unspecified; E11.65 Type 2 diabetes mellitus with hyperglycemia; I27.20 Pulmonary hypertension, unspecified; E87.6 Hypokalemia; E83.42 Hypomagnesemia; F32.A Depression, unspecified; Z99.81 Dependence on supplemental oxygen; T50.2X6A Underdosing of carbonic-anhydrase inhibitors, benzothiadiazides and other diuretics, initial encounter; T38.3X6A Underdosing of insulin and oral hypoglycemic [antidiabetic] drugs, initial encounter; Z91.128 Patient's intentional underdosing of medication regimen for other reason; Z79.4 Long term (current) use of insulin; Z63.4 Disappearance and death of family member
CPT/HCPCS: J1650; J1815; J1939; J3475; J3480